=== PATIENT | male | born 1980 | race Caucasian/White ===

== ENCOUNTER 2016-12-06 07:41 | Emergency (ER) | payer MEDICAID ==
[2016-12-06] MEDS ORDERED: Bacitracin Oint 1 GM U/D Packet TOP ONE (08:18)
[2016-12-06] MEDS ORDERED: diphenhydrAMINE 50 MG/ML SDV IM ONE (08:37)
[2016-12-06] MEDS ORDERED: Acetaminophen/HYDROcodone 325-5 MG Tab PO ONE (09:02)
--- NOTE | 2016-12-06 09:08 | EDM.PDOC ---
ED HPI GENERAL MEDICAL PROBLEM - General Chief Complaint: General Stated Complaint: INFECTED TOE ON LEFT FT Time Seen by Provider: 12/06/16 08:10 Source of Information: Reports: Patient History Limitations: Reports: No Limitations - History of Present Illness INITIAL COMMENTS - FREE TEXT/NARRATIVE: pt arrived with pain in his left small toe. The whole toe is red. Onset: Gradual, Other ( several days. He has cut the majority of the small left toe nail off. ) Duration: Getting Worse Location: Reports: Lower Extremity, Left Associated Symptoms: Reports: No Other Symptoms Left Feet Pain Score (Numeric/FACES): 8 - Related Data Allergies Allergy/AdvReac Type Severity Reaction Status Date / Time lidocaine Allergy Anaphylactic Verified 12/06/16 08:28 Shock all yessica products Allergy Anaphylactic Uncoded 12/06/16 08:28 Shock Home Meds: Home Meds NK [No Known Home Meds] 12/06/16 [History] Past Medical History Respiratory History: Reports: Pneumothorax Gastrointestinal History: Reports: Irritable Bowel Syndrome Musculoskeletal History: Reports: Fracture, Neck Pain, Chronic, Other (See Below ) Other Musculoskeletal History: broken neck, no surgery Neurological History: Reports: Brain Injury, Concussion, Head Trauma Psychiatric History: Reports: ADHD, Addiction, Anxiety, Bipolar, Depression, Emotional Problems, Learning Disability, Panic Attack, Psych Hospitalization(s) , PTSD Other Psychiatric History: multiple psych hospitalizations for self harm issues Dermatologic History: Reports: Other (See Below) Other Dermatologic History: ongoing rash on both arms, has been seeing doctors with no answers yet - Infectious Disease History Infectious Disease History: Reports: Chicken Pox, Herpes, MRSA, Shingles, Other (See Below) Other Infectious Disease History: MRSA carrier, right hand sore now healed up - Past Surgical History HEENT Surgical History: Reports: Tonsillectomy Respiratory Surgical History: Reports: Other (See Below) Other Respiratory Surgeries/Procedures: scraped coagulated lung, chest tube GI Surgical History: Reports: Hernia Repair/Other, Other (See Below) Other GI Surgeries/Procedures: repair with mesh Musculoskeletal Surgical History: Reports: Other (See Below) Other Musculoskeletal Surgeries/Procedures:: left leg surgery Social & Family History - Tobacco Use Smoking Status *Q: Current Every Day Smoker Years of Tobacco use: 20 Packs/Tins Daily: 1 - Caffeine Use Caffeine Use: Reports: None, Coffee, Soda - Recreational Drug Use Recreational Drug Use: Yes Drug Use in Last 12 Months: Yes Recreational Drug Type: Reports: Methamphetamine Recreational Drug Use Frequency: Daily Recreational Drug Last Use: october 09 2016 ED ROS GENERAL - Review of Systems Review Of Systems: See Below Constitutional: Reports: No Symptoms HEENT: Reports: No Symptoms Respiratory: Reports: No Symptoms Cardiovascular: Reports: No Symptoms Endocrine: Reports: No Symptoms GI/Abdominal: Reports: No Symptoms : Reports: No Symptoms Musculoskeletal: Reports: No Symptoms Skin: Reports: No Symptoms ED EXAM, GENERAL - Physical Exam Exam: See Below Free Text/Narrative:: pt arrived with pain in his left great toe. The small toe is infected. Exam Limited By: No Limitations General Appearance: Alert, Mild Distress, Other ( very anxious appearing. He is coming off of meth. ) Ears: Normal TMs Nose: Normal Inspection Throat/Mouth: Normal Inspection Head: Atraumatic Neck: Normal Inspection Extremities: Other ( rt small toe is red and is very tender. The pt has cut the majority of the nail of the small toe off. It is very hard to see the anatomy of the toe The side of the nail was clipped off. ) Psychiatric: Normal Affect Course - Vital Signs Last Recorded V/S: Last Vital Signs Temp 35.9 C 12/06/16 08:44 Pulse 64 12/06/16 08:44 Resp 18 12/06/16 08:44 BP 138/81 12/06/16 08:44 Pulse Ox 97 12/06/16 08:44 - Orders/Labs/Meds Meds: Medications Discontinued Medications Generic Name Dose Route Start Last Admin Trade Name Marbin PRN Reason Stop Dose Admin Hydrocodone Bitart/Acetaminophen 1 tab 12/06/16 09:02 12/06/16 09:08 [place] 325-5 Mg PO 12/06/16 09:03 1 tab ONETIME ONE Administration Bacitracin 1 dose 12/06/16 08:18 12/06/16 09:08 Bacitracin Oint 1 Gm TOP 12/06/16 08:19 1 dose ONETIME ONE Administration Diphenhydramine HCl 50 mg 12/06/16 08:37 12/06/16 09:07 Benadryl IM 12/06/16 08:38 50 mg ONETIME ONE Administration Lidocaine HCl 5 ml 12/06/16 08:18 12/06/16 09:04 Xylocaine-Mpf 1% INJECT 12/06/16 08:19 Not Given ONETIME ONE - Re-Assessments/Exams Free Text/Narrative Re-Assessment/Exam: 12/06/16 09:20 push fluids, soak foot tid, apply bacatracin and keep it dressed. It was dressed here. He will be sent home with a ice pack. Departure - Departure Time of Disposition: 09:04 Disposition: Home, Self-Care 01 Condition: Fair Clinical Impression: Infected nailbed of toe - Discharge Information Instructions: Wound Infection Referrals: PCP,None [Primary Care Provider] - Forms: ED Department Discharge Care Plan Goals: motrin 600mg q6h, soak foot tid an apply bacatracin with a dressing. today cool pack the site to help relieve pain, elevate the foot, clindomycin 300mg tid for the next week.
== END 2016-12-06 09:17 | disposition home or self-care (01) ==
LOC: JP.ED 07:41
DX: L03.032 Cellulitis of left toe (principal); Z88.8 Allergy status to other drugs, medicaments and biological substances; F17.210 Nicotine dependence, cigarettes, uncomplicated
CPT/HCPCS: 96372; 99283; A9270; J1200

== ENCOUNTER 2016-12-07 16:50 | Emergency (ER) | payer MEDICAID ==
[2016-12-07] MEDS ORDERED: hydrOXYzine HCl 100 MG/2 ML SDV IM ONE (18:15)
--- NOTE | 2016-12-07 18:31 | EDM.PDOC ---
ED HPI GENERAL MEDICAL PROBLEM - General Chief Complaint: Skin Complaint Stated Complaint: RASH Time Seen by Provider: 12/07/16 18:27 Source of Information: Reports: Patient, RN Notes Reviewed History Limitations: Reports: No Limitations - History of Present Illness INITIAL COMMENTS - FREE TEXT/NARRATIVE: 36-year-old gentleman presents emergency department day complaint of a rash, he states the rash is really developed over the last 24 hours he has had the rash a couple of times in the past but never to this extent the rash is predominantly over his whole body he now has it on the palms of his hands as well as the soles of his feet he's also developed rash in his genitalia area. He does work as a data technical lead there is a possibility of tick exposure he states he is heterosexual he is however there is a possibility of exposure with another sexual encounter about a year ago. Describes the rash is extremely itchy Generalized Pain Score (Numeric/FACES): 8 - Related Data Allergies Allergy/AdvReac Type Severity Reaction Status Date / Time lidocaine Allergy Anaphylactic Verified 12/07/16 17:14 Shock all yessica products Allergy Anaphylactic Uncoded 12/07/16 17:14 Shock Home Meds: Home Meds NK [No Known Home Meds] 12/06/16 [History] Past Medical History Respiratory History: Reports: Pneumothorax Gastrointestinal History: Reports: Irritable Bowel Syndrome Musculoskeletal History: Reports: Fracture, Neck Pain, Chronic, Other (See Below ) Other Musculoskeletal History: broken neck, no surgery Neurological History: Reports: Brain Injury, Concussion, Head Trauma Psychiatric History: Reports: ADHD, Addiction, Anxiety, Bipolar, Depression, Emotional Problems, Learning Disability, Panic Attack, Psych Hospitalization(s) , PTSD Other Psychiatric History: multiple psych hospitalizations for self harm issues Dermatologic History: Reports: Other (See Below) Other Dermatologic History: ongoing rash on both arms, has been seeing doctors with no answers yet - Infectious Disease History Infectious Disease History: Reports: Chicken Pox Other Infectious Disease History: MRSA carrier, right hand sore now healed up - Past Surgical History HEENT Surgical History: Reports: Tonsillectomy Respiratory Surgical History: Reports: Other (See Below) Other Respiratory Surgeries/Procedures: scraped coagulated lung, chest tube GI Surgical History: Reports: Hernia Repair/Other, Other (See Below) Other GI Surgeries/Procedures: repair with mesh Musculoskeletal Surgical History: Reports: Other (See Below) Other Musculoskeletal Surgeries/Procedures:: left leg surgery Social & Family History - Tobacco Use Smoking Status *Q: Current Every Day Smoker Years of Tobacco use: 24 Packs/Tins Daily: 1 Used Tobacco, but Quit: No Second Hand Smoke Exposure: Yes - Caffeine Use Caffeine Use: Reports: Coffee, Soda - Recreational Drug Use Recreational Drug Use: No Drug Use in Last 12 Months: Yes Recreational Drug Type: Reports: Methamphetamine Recreational Drug Use Frequency: Daily Recreational Drug Last Use: october 09 2016 ED ROS GENERAL - Review of Systems Review Of Systems: See Below Constitutional: Denies: Fever, Chills HEENT: Reports: No Symptoms Respiratory: Reports: No Symptoms Cardiovascular: Reports: No Symptoms GI/Abdominal: Reports: No Symptoms : Reports: No Symptoms Musculoskeletal: Reports: No Symptoms Skin: Reports: Rash, Erythema, Change in Color, Other (Pustules) ED EXAM, SKIN/RASH Exam: See Below Text/Narrative:: Examination of the rash it is encompassing the whole body he has rash on the palms of his hands as well as the soles of his feet there are multiple macular areas with pustules at the center he does have a chancre on the distal aspect on the penis glans, rashes consistent with secondary syphilis Exam Limited By: No Limitations General Appearance: Alert, WD/WN, No Apparent Distress Respiratory/Chest: No Respiratory Distress, Lungs Clear, Normal Breath Sounds Cardiovascular: Regular Rate, Rhythm, No Murmur Course - Vital Signs Last Recorded V/S: Last Vital Signs Temp 97.9 F 12/07/16 17:22 Pulse 62 12/07/16 17:22 Resp 20 12/07/16 17:22 BP 162/93 H 12/07/16 17:22 Pulse Ox 100 12/07/16 17:22 - Orders/Labs/Meds Orders: Active Orders 24 hr Category Date Time Status RPR CONFIRMATION PROFILE [REF] Stat Lab 12/07/16 18:37 Received RPR-TREP PALLIDIUM AB,REFLEX [REF] Stat Lab 12/07/16 18:37 Received Labs: Laboratory Tests 12/07/16 12/07/16 Range/Units 18:37 18:37 WBC 10.4 (4.5-11.0) K/uL RBC 4.92 (4.30-5.90) M/uL Hgb 15.4 H (12.0-15.0) g/dL Hct 45.0 (40.0-54.0) % MCV 92 (80-98) fL MCH 31 (27-31) pg MCHC 34 (32-36) % Plt Count 287 (150-400) K/uL Neut % (Auto) 68 H (36-66) % Lymph % (Auto) 21 L (24-44) % [place] % (Auto) 9 H (2-6) % Eos % (Auto) 3 (2-4) % Baso % (Auto) 0 (0-1) % Sodium 140 (140-148) mmol/L Potassium 3.8 (3.6-5.2) mmol/L Chloride 104 (100-108) mmol/L Carbon Dioxide 28 (21-32) mmol/L Anion Gap 7.9 (5.0-14.0) mmol/L BUN 12 (7-18) mg/dL Creatinine 1.0 (0.8-1.3) mg/dL Est Cr Clr Drug Dosing 114.24 mL/min Estimated GFR (MDRD) > 60 (>60) Glucose 89 (74-106) mg/dL Calcium 9.2 (8.5-10.1) mg/dL Total Bilirubin 0.9 (0.2-1.0) mg/dL AST 22 (15-37) U/L ALT 29 (12-78) U/L Alkaline Phosphatase 92 (46-116) U/L C-Reactive Protein 0.08 (0.0-0.3) mg/dL Total Protein 7.3 (6.4-8.2) g/dL Albumin 4.2 (3.4-5.0) g/dL Globulin 3.1 (2.3-3.5) g/dL Albumin/Globulin Ratio 1.4 (1.2-2.2) Meds: Medications Discontinued Medications Generic Name Dose Route Start Last Admin Trade Name Freq PRN Reason Stop Dose Admin Hydromorphone HCl 1 mg 12/07/16 18:50 12/07/16 18:55 Dilaudid IM 12/07/16 18:51 1 mg ONETIME ONE Administration Hydroxyzine HCl 100 mg 12/07/16 18:15 12/07/16 18:29 Vistaril IM 12/07/16 18:16 100 mg ONETIME ONE Administration Penicillin G Benzathine 2.4 millunits 12/07/16 18:32 12/07/16 19:09 Bicillin L-A IM 12/07/16 18:33 2.4 millunits ONETIME ONE Administration Departure - Departure Time of Disposition: 19:47 Disposition: Home, Self-Care 01 Condition: Fair Clinical Impression: Secondary syphilis of skin - Discharge Information Referrals: PCP,None [Primary Care Provider] - Forms: ED Department Discharge Additional Instructions: Use Benadryl as needed to help control itching symptoms, use hydrocodone as needed for pain control, please establish with primary care the next 5-7 days for reevaluation results from tests sent to the state lab should be back within 10 days, call return to the emergency department with worsening of symptoms - My Orders Last 24 Hours: My Active Orders 12/07/16 18:37 RPR CONFIRMATION PROFILE [REF] Stat RPR-TREP PALLIDIUM AB,REFLEX [REF] Stat - Assessment/Plan Last 24 Hours: My Active Orders 12/07/16 18:37 RPR CONFIRMATION PROFILE [REF] Stat RPR-TREP PALLIDIUM AB,REFLEX [REF] Stat Plan: Assessment Acuity = acute Site and laterality = rash on palms and soles of feet Etiology = probable secondary syphilis Manifestations = pain and discomfort secondary to rash Location of injury = Home Lab values = CBC, CMP unremarkable RPR and reflexes pending Plan I did review his lab results with him and my suspicion of syphilis with his case story fits with exposure about a year ago he did receive 2.4 million units of penicillin which she tolerated well he has not established with a primary care he is going to do that have him follow-up within 5-7 days I told him the state would be contacting him if it was positive, prescription written for Benadryl and hydrocodone 5/325 one tab by mouth 3 times a day when necessary total #10 Patient was in agreement with the plan all questions were answered, they were instructed to return to the emergency department or call for worsening symptoms. This note was dictated using [employer] voice recognition software please call with any questions.
[2016-12-07] MEDS ORDERED: Penicillin G Benzathine 1,200,000 Units/2 ML Syringe IM ONE (18:32)
[2016-12-07] MEDS ORDERED: HYDROmorphone 1 MG/ML Syringe IM ONE (18:50)
== END 2016-12-07 20:14 | disposition home or self-care (01) ==
LOC: JP.ED 16:50
DX: A51.49 Other secondary syphilitic conditions (principal); Z88.8 Allergy status to other drugs, medicaments and biological substances; F17.210 Nicotine dependence, cigarettes, uncomplicated
CPT/HCPCS: 36415; 80053; 85025; 86140; 86593; 86780; 96372; 99283; J0561; J1170; J3410